=== PATIENT | male | born 1980 | race Caucasian/White ===

== ENCOUNTER 2018-06-29 13:49 | Inpatient (IN) | payer OTHER ==
[2018-06-29 14:41] VITALS: BMI 19.5
--- NOTE | 2018-06-29 19:47 | HP ---
"CIWA Score - CIWA Score Nausea/Vomitin-Mild Nausea/No Vomiting (Cramps in stomach) Muscle Tremors: 4-Moderate,w/Arms Extend Anxiety: 3 Agitation: 4-Moderately Restless Paroxysmal Sweats: 4-Forehead w/Sweat Beads Orientation: 0-Oriented Tacttile Disturbances: 0-None Auditory Disturbances: 0-None Visual Disturbances: 0-None Headache: 0-None Present CIWA-Ar Total Score: 16 Admission ROS [facility] - HPI Chief Complaint: Here for alcohol detox. Allergies/Adverse Reactions: Allergies Allergy/AdvReac Type Severity Reaction Status Date / Time No Known Allergies Allergy Verified 06/29/18 16:32 History of Present Illness: Alcohol use disorder since age 19. Amounts increased over past 4 years. [facility] stopped rum on 06/24 to 06/27. States started drinking beer instead of rum for past 2 days. Marijuana use disorder since age 15. PCP use began at age 20. Last used 06/28. Denies benzo use. Hx. opiate use disorder since age 36. Started on [facility] Methadone Program. Methadone 70 mg PO daily. Last dose today. was hospitalized at [facility] on 06/27- w/ bite of (R) ear w / reattachment. Antibiotics will be continued. Patient instructed to f/u w/ ear appointment post-discharge. Search Terms: Mark Lopez, 1980 Search Date: 06/29/2018 08:53:23 PM The Drug Utilization Report below displays all of the controlled substance prescriptions, if any, that your patient has filled in the last twelve months. The information displayed on this report is compiled from pharmacy submissions to the Department, and accurately reflects the information as submitted by the pharmacies. This report was requested by: Jayashree Fair | Reference #: [id number] Patient Name: Mark Lopez Date: 1980 Address: [address] [place], [place] [id number] Sex: Male Rx Written Rx Dispensed Drug Quantity Days Supply Prescriber Name 06/28/2018 06/28/2018 oxycodone-acetaminophen 5-325 mg tab 20 5 [facility] Patient Name: Mark Lopez Date: 1980 Address: [address] [place], [place] [id number] Sex: Male Rx Written Rx Dispensed Drug Quantity Days Supply Prescriber Name 05/04/2018 05/04/2018 acetaminophen-cod #3 tablet 20 5 Delio Skaggs MD Patient Name: Mark Lopez Date: 1980 Address: [address] [place] [id number] Sex: Male Rx Written Rx Dispensed Drug Quantity Days Supply Prescriber Name 01/05/2018 01/10/2018 tramadol-acetaminophen 37.5-325 mg tab 21 7 [facility] Exam Limitations: No Limitations - Ebola screening Have you traveled outside of the country in the last 21 days: No (N) Have you had contact with anyone from an Ebola affected area: No Have you been sick,other than usual withdrawal symptoms: No Do you have a fever: No - Review of Systems Constitutional: Diaphoresis EENT: reports: Ear Pain (Pain in (R) ear. S/P traumatic amputation (Bite) top of (R) ear with reattachement) Respiratory: reports: No Symptoms reported Cardiac: reports: No Symptoms Reported GI: reports: Nausea (w/ cramps) : reports: No Symptoms Reported Musculoskeletal: reports: No Symptoms Reported Integumentary: reports: No Symptoms Reported Neuro: reports: Tremors Endocrine: reports: No Symptoms Reported Hematology: reports: No Symptoms Reported Psychiatric: reports: Orientated x3, Agitated, Anxious, Depressed (Denies current thoughts of harming self.) Patient History - Patient Medical History Hx Anemia: No Hx Asthma: No Hx Chronic Obstructive Pulmonary Disease (COPD): No Hx Cancer: No Hx Cardiac Disorders: No Hx Congestive Heart Failure: No Hx Hypertension: No Hx Hypercholesterolemia: No Hx Pacemaker: No HX Cerebrovascular Accident: No Hx Seizures: No Hx Dementia: No Hx Diabetes: No Hx Gastrointestinal Disorders: No Hx Liver Disease: No Hx Genitourinary Disorders: No Hx Sexually Transmitted Disorders: No Hx Renal Disease (ESRD): No Hx Thyroid Disease: No Hx Human Immunodeficiency Virus (HIV): No (in 2018) Hx Hepatitis C: No Hx Depression: Yes (Has thought of hurting self in past, but never attempted) Hx Suicide Attempt: No Hx Bipolar Disorder: No Hx Schizophrenia: No - Patient Surgical History Other Surgical History: BIte (R) ear lobe w/ reattachment. Anesthesia Reaction: No - PPD History Previous Implant?: Yes Documented Results: Negative w/o proof Implanted On Prior [facility] Admission?: Yes PPD to be Administered?: Yes - Smoking Cessation Smoking history: Current every day smoker Have you smoked in the past 12 months: Yes Aproximately how many cigarettes per day: 8 Hx Chewing Tobacco Use: No Initiated information on smoking cessation: Yes 'Breaking Loose' booklet given: 06/29/18 - Substance & Tx. History Hx Alcohol Use: Yes Hx Substance Use: Yes Substance Use Type: Alcohol, Heroin, Tranquilizers (PCP) Hx Substance Use Treatment: Yes (On MMTP) - Substances Abused Alcohol Route: Oral Frequency: Daily Amount used: 1 pint rum til 06/24; last 2 days 4- 24 oz beers daily Age of first use: 19 Date of Last Use: 06/29/18 Marijuana/Hashish Route: Smoking Frequency: Daily Amount used: 3-5 blunts Age of first use: 15 Date of Last Use: 06/28/18 PCP Route: Smoking Frequency: Daily Amount used: 2 bags Age of first use: 20 Date of Last Use: 06/28/18 Admission Physical Exam [facility] - Vital Signs Vital Signs: Vital Signs - 24 hr 06/29/18 14:38 Temperature 97.0 F L Pulse Rate 76 Respiratory 18 Rate Blood Pressure 110/76 - Physical General Appearance: Yes: Mild Distress, Tremorous, Sweating (Facial perspiration ), Anxious HEENTM: Yes: EOMI, Hearing grossly Normal, Normocephalic, LEE ANN, Other ([place] of (R) ear is attached w/ sutures and covered w/xeroform dressing. 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 ) Lymphatic: Yes: Within Normal Limits - Diagnostic (1) Alcohol dependence with uncomplicated withdrawal Current Visit: Yes Status: Acute (2) Methadone maintenance therapy patient Current Visit: Yes Status: Chronic (3) Cannabis dependence without complication Current Visit: Yes Status: Chronic (4) PCP (phencyclidine) abuse Current Visit: Yes Status: Acute (5) Injury of right ear Current Visit: Yes Status: Acute Qualifiers: Encounter type: subsequent encounter Qualified Code(s): S09.91XD - Unspecified injury of ear, subsequent encounter Cleared for Admission [facility] - Detox or Rehab [facility] Level of Care: Medically Managed Detox Regimen/Protocol: Librium S Breath Alcohol Content Breath Alcohol Content: 0 Urine Drug Screen - Results Drug Screen Negative: No Urine Drug Screen Results: THC-Marijuana, BZO-Benzodiazepines, MTD-Methadone, OXY-Oxycodone"
[2018-06-29] MEDS ORDERED: chlordiazePOXIDE HCL 25 MG CAPSULE PO ONE (20:26)
[2018-06-29] MEDS ORDERED: MAGNESIUM CITRATE 300 ML BOTTLE PO PRN (20:26)
[2018-06-29] MEDS ORDERED: MAGNESIUM HYDROX 2400MG/30ML ORAL SUSPENSION 30 ML CUP PO PRN (20:26)
[2018-06-29] MEDS ORDERED: ACETAMINOPHEN 325 MG TABLET (FP) PO PRN (20:26)
[2018-06-29] MEDS ORDERED: MAG HYDROX/AL HYDROX/SIMETH 30 ML UNIT-DOSE CUP PO PRN (20:26)
[2018-06-29] MEDS ORDERED: LOPERAMIDE HCL 2 MG CAPSULE PO PRN (20:26)
[2018-06-29] MEDS ORDERED: hydrOXYzine PAMOATE 50 MG CAPSULE (FP) PO PRN (20:26)
[2018-06-29] MEDS ORDERED: IBUPROFEN 400 MG TABLET (FP) PO PRN (20:26)
[2018-06-29] MEDS ORDERED: guaiFENesin/D-METHORPHAN HB 10 ML UNIT-DOSE CUPS PO PRN (20:26)
[2018-06-29] MEDS ORDERED: MENTHOL/PHENOL 1 EACH UD MM PRN (20:26)
[2018-06-29] MEDS ORDERED: chlordiazePOXIDE HCL 25 MG CAPSULE PO PRN (20:26)
[2018-06-29] MEDS ORDERED: P-EPHED 60MG/TRIPROLIDI 2.5MG TABLET PO PRN (20:26)
[2018-06-29] MEDS: PATIENT'S OWN MEDICATION (NON-FORMULARY) (Ciprofloxacin [Cipro -] 500 MG) PO SCH (22:24)
[2018-06-29] MEDS: chlordiazePOXIDE HCL 25 MG CAPSULE PO SCH (22:25)
[2018-06-29] MEDS: THIAMINE HCL 100 MG TABLET (FP) PO SCH (22:25)
[2018-06-29] MEDS: NICOTINE POLACRILEX 2 MG GUM BC PRN (22:32)
[2018-06-29 23:47] LABS: URINE APPEARANCE CLOUDY; URINE BILIRUBIN NEGATIVE (<2.0 mg/dL); URINE COLOR AMBER; URINE GLUCOSE (UA) NEGATIVE (NEGATIVE); URINE KETONE NEGATIVE (NEGATIVE); URINE LEUK ESTERASE NEGATIVE (NEGATIVE); URINE NITRITE NEGATIVE (NEGATIVE)
[2018-06-29 23:48] LABS: URINE PROTEIN 2+ (NEGATIVE)
[2018-06-29 23:53] LABS: EPI CELLS RARE /HPF (FEW); URINE BACTERIA MODERATE /hpf (NONE SEEN); URINE MUCUS MANY
[2018-06-30] MEDS: chlordiazePOXIDE HCL 25 MG CAPSULE PO SCH ×4 (05:41→22:34)
[2018-06-30] MEDS ORDERED: METHADONE HCL 10 MG TABLET PO SCH (08:45)
--- NOTE | 2018-06-30 08:45 | PN ---
[facility] Progress Note Note: Vital Signs Temperature 97.9 F 06/30/18 06:27 Pulse Rate 77 06/30/18 06:27 Respiratory Rate 18 06/30/18 06:27 Blood Pressure 105/57 L 06/30/18 06:27 O2 Sat by Pulse Oximetry (%) Laboratory Last Values Urine Color Lisa 06/29/18 21:40 Urine Appearance Cloudy 06/29/18 21:40 Urine pH 5.0 (5.0-8.0) 06/29/18 21:40 Ur Specific [place] 1.041 (1.001-1.035) H 06/29/18 21:40 Urine Protein 2+ (NEGATIVE) H 06/29/18 21:40 Urine Glucose (UA) Negative (NEGATIVE) 06/29/18 21:40 Urine Ketones Negative (NEGATIVE) 06/29/18 21:40 Urine Blood Negative (NEGATIVE) 06/29/18 21:40 Urine Nitrite Negative (NEGATIVE) 06/29/18 21:40 Urine Bilirubin Negative (<2.0 mg/dL) 06/29/18 21:40 Urine Urobilinogen 2.0 mg/dL (0.2-1.0) 06/29/18 21:40 Ur Leukocyte Esterase Negative (NEGATIVE) 06/29/18 21:40 Urine WBC (Auto) 10 /hpf (3-5) 06/29/18 21:40 Urine RBC (Auto) 2 /hpf (0-3) 06/29/18 21:40 Ur Epithelial Cells Rare /HPF (FEW) 06/29/18 21:40 Urine Bacteria Moderate /hpf (NONE SEEN) 06/29/18 21:40 Urine Mucus Many 06/29/18 21:40 MMTP: [facility] [phone] ext:[id number] on methadone dose 70 mg last medicated 06/29/18. Dose verified by Mychal Skaggs LPN with Samson Schwarz LPN. Methadone dose ordered continue to monitor
[2018-06-30] MEDS ORDERED: METHADONE HCL 10 MG TABLET ONE (09:07)
[2018-06-30] MEDS ORDERED: METHADONE HCL 40 MG DISPERSABLE TABLET ONE (09:07)
--- NOTE | 2018-06-30 09:39 | EKG ---
Test Reason : Blood Pressure : / mmHG Vent. Rate : 069 BPM Atrial Rate : 069 BPM P-R Int : 144 ms QRS Dur : 088 ms QT Int : 386 ms P-R-T Axes : 014 -19 -07 degrees QTc Int : 413 ms SINUS RHYTHM WITH PREMATURE ATRIAL COMPLEXES MODERATE VOLTAGE CRITERIA FOR LVH, MAY BE NORMAL VARIANT BORDERLINE ECG NO PREVIOUS ECGS AVAILABLE Confirmed by AXEL THOMPSON MD ([id number]) on 06/30/2018 9:38:48 AM Referred By: Confirmed By:AXEL THOMPSON MD
[2018-06-30 10:06] LABS: HEMATOCRIT 37.5 % (35.4-49); HEMOGLOBIN 11.9 GM/dL (11.7-16.9); MCHC 31.8 g/dl (32.0-35.9); MEAN CELL VOLUME 84.8 fl (80-96); PLATELET COUNT 275 K/MM3 (134-434); RBC 4.42 M/mm3 (4.00-5.60); RDW 13.9 % (11.9-15.9); WHITE BLOOD COUNT 3.7 K/mm3 (4.0-10.0)
[2018-06-30 10:42] LABS: ALBUMIN 2.8 g/dl (3.4-5.0); ALK PHOS 85 U/L (45-117); ANION GAP 10 MMOL/L (8-16); BILIRUBIN,TOTAL 0.1 mg/dL (0.2-1); BLOOD UREA NITROGEN 10 mg/dL (7-18); CALCIUM 9.2 mg/dL (8.5-10.1); CHLORIDE 108 mmol/L (98-107); CO2 26 mmol/L (21-32); CREATININE 0.6 mg/dL (0.55-1.3); GLUCOSE,RANDOM 86 mg/dL (74-106); POTASSIUM 4.5 mmol/L (3.5-5.1); SGOT/AST 12 U/L (15-37); SGPT/ALT 15 U/L (13-61); SODIUM 144 mmol/L (136-145)
[2018-06-30] MEDS: PRENATAL VITAMINS W/ FOLIC ACID TABLET (FP) PO SCH (11:03)
[2018-06-30] MEDS: NICOTINE 14 MG/24 HOURS TOPICAL PATCH TD SCH (11:03)
[2018-06-30] MEDS: METHADONE 40 MG, METHADONE 30 MG PO SCH (11:04)
[2018-06-30] MEDS: NICOTINE POLACRILEX 2 MG GUM BC PRN ×3 (11:11→23:15)
[2018-06-30] MEDS: PATIENT'S OWN MEDICATION (NON-FORMULARY) (Ciprofloxacin [Cipro -] 500 MG) PO SCH ×2 (11:15→22:35)
--- NOTE | 2018-06-30 11:44 | PN ---
[facility] CIWA - CIWA Score Nausea/Vomitin-Mild Nausea/No Vomiting Muscle Tremors: 2 Anxiety: 3 Agitation: 3 Paroxysmal Sweats: 2 Orientation: 0-Oriented [facility] Progress Note (SOAP) Subjective: c/o interupted sleep, anxious, genarlised discomfort, chills, sweat and interrupted sleep Objective: 06/30/18 11:43 Vital Signs Temperature 97.5 F L 06/30/18 09:10 Pulse Rate 72 06/30/18 09:10 Respiratory Rate 18 06/30/18 09:10 Blood Pressure 109/67 06/30/18 09:10 O2 Sat by Pulse Oximetry (%) Laboratory Last Values WBC 3.7 K/mm3 (4.0-10.0) L 06/30/18 07:00 RBC 4.42 M/mm3 (4.00-5.60) 06/30/18 07:00 Hgb 11.9 GM/dL (11.7-16.9) 06/30/18 07:00 Hct 37.5 % (35.4-49) 06/30/18 07:00 MCV 84.8 fl (80-96) 06/30/18 07:00 MCH 27.0 pg (25.7-33.7) 06/30/18 07:00 MCHC 31.8 g/dl (32.0-35.9) L 06/30/18 07:00 RDW 13.9 % (11.9-15.9) 06/30/18 07:00 Plt Count 275 K/MM3 (134-434) 06/30/18 07:00 MPV 8.0 fl (7.5-11.1) 06/30/18 07:00 Sodium 144 mmol/L (136-145) 06/30/18 07:00 Potassium 4.5 mmol/L (3.5-5.1) 06/30/18 07:00 Chloride 108 mmol/L (98-107) H 06/30/18 07:00 Carbon Dioxide 26 mmol/L (21-32) 06/30/18 07:00 Anion Gap 10 MMOL/L (8-16) 06/30/18 07:00 BUN 10 mg/dL (7-18) 06/30/18 07:00 Creatinine 0.6 mg/dL (0.55-1.3) 06/30/18 07:00 Creat Clearance w eGFR > 60 (>60) 06/30/18 07:00 Random Glucose 86 mg/dL (74-106) 06/30/18 07:00 Calcium 9.2 mg/dL (8.5-10.1) 06/30/18 07:00 Total Bilirubin 0.1 mg/dL (0.2-1) L 06/30/18 07:00 AST 12 U/L (15-37) L 06/30/18 07:00 ALT 15 U/L (13-61) 06/30/18 07:00 Alkaline Phosphatase 85 U/L (45-117) 06/30/18 07:00 Total Protein 6.0 g/dl (6.4-8.2) L 06/30/18 07:00 Albumin 2.8 g/dl (3.4-5.0) L 06/30/18 07:00 Urine Color Lisa 06/29/18 21:40 Urine Appearance Cloudy 06/29/18 21:40 Urine pH 5.0 (5.0-8.0) 06/29/18 21:40 Ur Specific [place] 1.041 (1.001-1.035) H 06/29/18 21:40 Urine Protein 2+ (NEGATIVE) H 06/29/18 21:40 Urine Glucose (UA) Negative (NEGATIVE) 06/29/18 21:40 Urine Ketones Negative (NEGATIVE) 06/29/18 21:40 Urine Blood Negative (NEGATIVE) 06/29/18 21:40 Urine Nitrite Negative (NEGATIVE) 06/29/18 21:40 Urine Bilirubin Negative (<2.0 mg/dL) 06/29/18 21:40 Urine Urobilinogen 2.0 mg/dL (0.2-1.0) 06/29/18 21:40 Ur Leukocyte Esterase Negative (NEGATIVE) 06/29/18 21:40 Urine WBC (Auto) 10 /hpf (3-5) 06/29/18 21:40 Urine RBC (Auto) 2 /hpf (0-3) 06/29/18 21:40 Ur Epithelial Cells Rare /HPF (FEW) 06/29/18 21:40 Urine Bacteria Moderate /hpf (NONE SEEN) 06/29/18 21:40 Urine Mucus Many 06/29/18 21:40 RPR Titer Nonreactive (NONREACTIVE) 06/30/18 07:00 AOx3 no distress +right ear injury (laceration) no adventitious breath sounds full ROM ambulating in the unit Assessment: 06/30/18 11:44 withdrawal sx Plan: increase PO fluids continue cipro for right ear laceration continue detox continue to monitor
--- NOTE | 2018-06-30 11:45 | PN ---
S CIWA - CIWA Score Nausea/Vomitin-No Nausea/No Vomiting Muscle Tremors: 3 Anxiety: 2 Agitation: 3 Paroxysmal Sweats: 3 Orientation: 0-Oriented Tacttile Disturbances: 0-None Auditory Disturbances: 0-None Visual Disturbances: 1-Very Mild Sensitivity Headache: 1-Very Mild CIWA-Ar Total Score: 13
[2018-06-30] MEDS ORDERED: FLU VACCINE QUAD 60 MCG/0.5 ML (MDV 18-19) IM ONE (12:00)
[2018-06-30] MEDS ORDERED: PNEUMOC 13-VAL CONJ-DIP CRM/PF 0.5 ML DISP.SYRIN IM ONE (12:00)
[2018-06-30] MEDS ORDERED: PNEUMOCOCCAL 23 VACCINE 0.5 ML VIAL IM ONE (12:00)
--- NOTE | 2018-06-30 15:15 | CONSULT ---
[facility] Psychiatric Consult - Data Date of interview: 06/30/18 Admission source: [facility] Identifying data: Patient is a 37 year old single male, father of three, unemployed and currently homeless. This is patient's first admission to detox at [facility]. Pt. admitted to for alcohol and opiate dependence. Substance Abuse History: Smoking Cessation. Smoking history: Current every day smoker. Have you smoked in the past 12 months: Yes. Aproximately how many cigarettes per day: 8. Hx Chewing Tobacco Use: No. Initiated information on smoking cessation: Yes. 'Breaking Loose' booklet given: 06/29/18. - Substance & Tx. History. Hx Alcohol Use: Yes. Hx Substance Use: Yes. Substance Use Type : Alcohol, Heroin, Tranquilizers (PCP). Hx Substance Use Treatment: Yes (On MMTP). - Substances Abused. Alcohol. Route: Oral. Frequency: Daily. Amount used: 1 pint rum til 06/24; last 2 days 4- 24 oz beers daily. Age of first use: 19. Date of Last Use: 06/29/18. Marijuana/Hashish. Route: Smoking. Frequency: Daily. Amount used: 3-5 blunts. Age of first use: 15. Date of Last Use: 06/28/18. PCP. Route: Smoking. Frequency: Daily. Amount used: 2 bags. Age of first use: 20. Date of Last Use: 06/28/18 Medical History: BIte (R) ear lobe w/ reattachment Psychiatric History: Patient's first psychiatric contact was during the first week of June 2018 in a private clinic in the [place] due to worsening depression , irritability, and difficulty controlling his anger. States he was diagnosed with bipolar disorder. Medications bottle obtained. Pt. is prescribed geodon 20mg + Mirtzapine 15mg + Lexapro 5mg. Pt. denies h/o psychiatric hospitalization and suicide attempt. Patient is currently enrolled at the Meth[facility] program [facility] and is on methadone maintenance 70mg daily. Physical/Sexual Abuse/Trauma History: denies. Mental Status Exam - Mental Status Exam Alert and Oriented to: Time, Place, Person Cognitive Function: Good Patient Appearance: Well Groomed Mood: Euthymic Affect: Mood Congruent Patient Behavior: Appropriate, Cooperative Speech Pattern: Clear, Appropriate Voice Loudness: Normal Thought Process: Intact, Goal Oriented Thought Disorder: Not Present Hallucinations: Denies Suicidal Ideation: Denies Homicidal Ideation: Denies Insight/Judgement: Poor Sleep: Fair Appetite: Fair Muscle strength/Tone: Normal Gait/Station: Normal Psychiatric Findings - Problem List ([place] 1, 2,3) (1) Mood disorder Current Visit: Yes Status: Chronic (2) Alcohol dependence with uncomplicated withdrawal Current Visit: Yes Status: Acute (3) Cannabis dependence without complication Current Visit: Yes Status: Chronic (4) Methadone maintenance therapy patient Current Visit: Yes Status: Chronic (5) Substance-induced sleep disorder Current Visit: Yes Status: Acute - Initial Treatment Plan Initial Treatment Plan: Psychoeducation provided. detoxification in progress. Prescription bottles obtained from security. Pt received a prescripition of geodon 20mg + lexapro 5mg + MIrtzapine on 06/21. Will order the above medications. Verbal consent given.
[2018-06-30] MEDS: MIRTAZAPINE 15 MG TABLET (FP) PO SCH (22:34)
[2018-06-30] MEDS: THIAMINE HCL 100 MG TABLET (FP) PO SCH (22:34)
[2018-06-30] MEDS: ZIPRASIDONE 20 MG CAPSULE PO SCH (22:36)
[2018-07-01] MEDS: IBUPROFEN 600 MG TABLET (FP) PO PRN (00:21)
[2018-07-01] MEDS ORDERED: METHADONE HCL 40 MG DISPERSABLE TABLET ONE (04:33)
[2018-07-01] MEDS ORDERED: METHADONE HCL 10 MG TABLET ONE (04:33)
[2018-07-01] MEDS: chlordiazePOXIDE HCL 25 MG CAPSULE PO SCH ×3 (05:01→17:17)
[2018-07-01] MEDS: METHADONE 40 MG, METHADONE 30 MG PO SCH (05:01)
[2018-07-01] MEDS: ESCITALOPRAM OXALATE 10 MG TABLET (FP) PO SCH (10:10)
[2018-07-01] MEDS: NICOTINE 14 MG/24 HOURS TOPICAL PATCH TD SCH (10:10)
[2018-07-01] MEDS: PATIENT'S OWN MEDICATION (NON-FORMULARY) (Ciprofloxacin [Cipro -] 500 MG) PO SCH ×2 (10:10→22:29)
[2018-07-01] MEDS: PRENATAL VITAMINS W/ FOLIC ACID TABLET (FP) PO SCH (10:11)
--- NOTE | 2018-07-01 11:43 | PN ---
[facility] Progress Note (SOAP) Subjective: sweats irritable agitation chills Objective: 07/01/18 11:42 Vital Signs Temperature 97.2 F L 07/01/18 09:30 Pulse Rate 92 H 07/01/18 09:30 Respiratory Rate 18 07/01/18 09:30 Blood Pressure 107/56 L 07/01/18 09:30 O2 Sat by Pulse Oximetry (%) Laboratory Tests 06/29/18 06/30/18 06/30/18 21:40 07:00 07:00 WBC 3.7 L RBC 4.42 Hgb 11.9 Hct 37.5 MCV 84.8 MCH 27.0 MCHC 31.8 L RDW 13.9 Plt Count 275 MPV 8.0 Sodium 144 Potassium 4.5 Chloride 108 H Carbon Dioxide 26 Anion Gap 10 BUN 10 Creatinine 0.6 Creat Clearance w eGFR > 60 Random Glucose 86 Calcium 9.2 Total Bilirubin 0.1 L AST 12 L ALT 15 Alkaline Phosphatase 85 Total Protein 6.0 L Albumin 2.8 L Urine Color Lisa Urine Appearance Cloudy Urine pH 5.0 Ur Specific [place] 1.041 H Urine Protein 2+ H Urine Glucose (UA) Negative Urine Ketones Negative Urine Blood Negative Urine Nitrite Negative Urine Bilirubin Negative Urine Urobilinogen 2.0 Ur Leukocyte Esterase Negative Urine WBC (Auto) 10 Urine RBC (Auto) 2 Ur Epithelial Cells Rare Urine Bacteria Moderate Urine Mucus Many RPR Titer 06/30/18 07:00 WBC RBC Hgb Hct MCV MCH MCHC RDW Plt Count MPV Sodium Potassium Chloride Carbon Dioxide Anion Gap BUN Creatinine Creat Clearance w eGFR Random Glucose Calcium Total Bilirubin AST ALT Alkaline Phosphatase Total Protein Albumin Urine Color Urine Appearance Urine pH Ur Specific [place] Urine Protein Urine Glucose (UA) Urine Ketones Urine Blood Urine Nitrite Urine Bilirubin Urine Urobilinogen Ur Leukocyte Esterase Urine WBC (Auto) Urine RBC (Auto) Ur Epithelial Cells Urine Bacteria Urine Mucus RPR Titer Nonreactive repeat u/a aaox3 ambulating no acute distress Assessment: 07/01/18 11:42 withdrawal sx Plan: continue detox increase fluids f/u repeat u/a
[2018-07-01] MEDS: ZIPRASIDONE 20 MG CAPSULE PO SCH (17:17)
[2018-07-01] MEDS: NICOTINE POLACRILEX 2 MG GUM BC PRN (21:12)
[2018-07-01] MEDS: MELATONIN 5 MG TABLETS PO PRN (22:29)
[2018-07-01] MEDS: THIAMINE HCL 100 MG TABLET (FP) PO SCH (22:29)
[2018-07-01] MEDS: chlordiazePOXIDE 5 MG CAPSULE PO SCH (22:30)
[2018-07-01] MEDS: MIRTAZAPINE 15 MG TABLET (FP) PO SCH (22:30)
[2018-07-02] MEDS: chlordiazePOXIDE 5 MG CAPSULE PO SCH ×3 (06:05→17:39)
[2018-07-02] MEDS ORDERED: METHADONE HCL 40 MG DISPERSABLE TABLET ONE (06:06)
[2018-07-02] MEDS ORDERED: METHADONE HCL 10 MG TABLET ONE (06:06)
[2018-07-02] MEDS: METHADONE 40 MG, METHADONE 30 MG PO SCH (06:06)
[2018-07-02] MEDS: NICOTINE POLACRILEX 2 MG GUM BC PRN ×2 (09:07→19:43)
--- NOTE | 2018-07-02 09:14 | PN ---
S CIWA - CIWA Score Nausea/Vomitin-No Nausea/No Vomiting Muscle Tremors: 1-None Visible, but [place] Anxiety: 2 Agitation: 2 Paroxysmal Sweats: 1-Minimal Palms Moist Orientation: 0-Oriented Tacttile Disturbances: 0-None Auditory Disturbances: 0-None Visual Disturbances: 0-None Headache: 0-None Present CIWA-Ar Total Score: 6 [facility] Progress Note (SOAP) Subjective: anxious, chills, interrupted sleep Objective: 07/02/18 09:11 Vital Signs Temperature 97.9 F 07/02/18 09:05 Pulse Rate 108 H 07/02/18 09:05 Respiratory Rate 18 07/02/18 09:05 Blood Pressure 103/68 07/02/18 09:05 O2 Sat by Pulse Oximetry (%) Laboratory Last Values WBC 3.7 K/mm3 (4.0-10.0) L 06/30/18 07:00 RBC 4.42 M/mm3 (4.00-5.60) 06/30/18 07:00 Hgb 11.9 GM/dL (11.7-16.9) 06/30/18 07:00 Hct 37.5 % (35.4-49) 06/30/18 07:00 MCV 84.8 fl (80-96) 06/30/18 07:00 MCH 27.0 pg (25.7-33.7) 06/30/18 07:00 MCHC 31.8 g/dl (32.0-35.9) L 06/30/18 07:00 RDW 13.9 % (11.9-15.9) 06/30/18 07:00 Plt Count 275 K/MM3 (134-434) 06/30/18 07:00 MPV 8.0 fl (7.5-11.1) 06/30/18 07:00 Sodium 144 mmol/L (136-145) 06/30/18 07:00 Potassium 4.5 mmol/L (3.5-5.1) 06/30/18 07:00 Chloride 108 mmol/L (98-107) H 06/30/18 07:00 Carbon Dioxide 26 mmol/L (21-32) 06/30/18 07:00 Anion Gap 10 MMOL/L (8-16) 06/30/18 07:00 BUN 10 mg/dL (7-18) 06/30/18 07:00 Creatinine 0.6 mg/dL (0.55-1.3) 06/30/18 07:00 Creat Clearance w eGFR > 60 (>60) 06/30/18 07:00 Random Glucose 86 mg/dL (74-106) 06/30/18 07:00 Calcium 9.2 mg/dL (8.5-10.1) 06/30/18 07:00 Total Bilirubin 0.1 mg/dL (0.2-1) L 06/30/18 07:00 AST 12 U/L (15-37) L 06/30/18 07:00 ALT 15 U/L (13-61) 06/30/18 07:00 Alkaline Phosphatase 85 U/L (45-117) 06/30/18 07:00 Total Protein 6.0 g/dl (6.4-8.2) L 06/30/18 07:00 Albumin 2.8 g/dl (3.4-5.0) L 06/30/18 07:00 Urine Color Lisa 06/29/18 21:40 Urine Appearance Cloudy 06/29/18 21:40 Urine pH 5.0 (5.0-8.0) 06/29/18 21:40 Ur Specific [place] 1.041 (1.001-1.035) H 06/29/18 21:40 Urine Protein 2+ (NEGATIVE) H 06/29/18 21:40 Urine Glucose (UA) Negative (NEGATIVE) 06/29/18 21:40 Urine Ketones Negative (NEGATIVE) 06/29/18 21:40 Urine Blood Negative (NEGATIVE) 06/29/18 21:40 Urine Nitrite Negative (NEGATIVE) 06/29/18 21:40 Urine Bilirubin Negative (<2.0 mg/dL) 06/29/18 21:40 Urine Urobilinogen 2.0 mg/dL (0.2-1.0) 06/29/18 21:40 Ur Leukocyte Esterase Negative (NEGATIVE) 06/29/18 21:40 Urine WBC (Auto) 10 /hpf (3-5) 06/29/18 21:40 Urine RBC (Auto) 2 /hpf (0-3) 06/29/18 21:40 Ur Epithelial Cells Rare /HPF (FEW) 06/29/18 21:40 Urine Bacteria Moderate /hpf (NONE SEEN) 06/29/18 21:40 Urine Mucus Many 06/29/18 21:40 RPR Titer Nonreactive (NONREACTIVE) 06/30/18 07:00 Assessment: 07/02/18 09:12 Aox3 no distress +right ear injury healing well, no discharge no adventitious breath sounds Full ROM, ambulating in the unit Plan: increase PO fluids continue PO abx continue detox continue to monitor Patient schedule to follow up at [facility] 07/04/18 for his after care
[2018-07-02] MEDS: PATIENT'S OWN MEDICATION (NON-FORMULARY) (Ciprofloxacin [Cipro -] 500 MG) PO SCH ×2 (10:05→22:58)
[2018-07-02] MEDS: PRENATAL VITAMINS W/ FOLIC ACID TABLET (FP) PO SCH (10:06)
[2018-07-02] MEDS: NICOTINE 14 MG/24 HOURS TOPICAL PATCH TD SCH (10:06)
[2018-07-02] MEDS: ESCITALOPRAM OXALATE 10 MG TABLET (FP) PO SCH (10:06)
[2018-07-02 11:20] LABS: URINE APPEARANCE CLEAR; URINE BILIRUBIN NEGATIVE (<2.0 mg/dL); URINE COLOR STRAW; URINE GLUCOSE (UA) NEGATIVE (NEGATIVE); URINE KETONE NEGATIVE (NEGATIVE); URINE LEUK ESTERASE NEGATIVE (NEGATIVE); URINE NITRITE NEGATIVE (NEGATIVE); URINE PROTEIN NEGATIVE (NEGATIVE); URINE UROBILINOGEN NEGATIVE mg/dL (0.2-1.0)
[2018-07-02] MEDS: ZIPRASIDONE 20 MG CAPSULE PO SCH (17:39)
[2018-07-02] MEDS: chlordiazePOXIDE HCL 10 MG CAPSULE PO SCH (22:58)
[2018-07-02] MEDS: THIAMINE HCL 100 MG TABLET (FP) PO SCH (22:58)
[2018-07-02] MEDS: MIRTAZAPINE 15 MG TABLET (FP) PO SCH (22:58)
[2018-07-02] MEDS: MELATONIN 5 MG TABLETS PO PRN (22:58)
[2018-07-03] MEDS ORDERED: METHADONE HCL 40 MG DISPERSABLE TABLET ONE (04:57)
[2018-07-03] MEDS ORDERED: METHADONE HCL 10 MG TABLET ONE (04:58)
[2018-07-03] MEDS: METHADONE 40 MG, METHADONE 30 MG PO SCH (06:05)
[2018-07-03] MEDS: chlordiazePOXIDE HCL 10 MG CAPSULE PO SCH ×3 (06:05→18:10)
[2018-07-03] MEDS: PATIENT'S OWN MEDICATION (NON-FORMULARY) (Ciprofloxacin [Cipro -] 500 MG) PO SCH ×2 (10:05→22:57)
[2018-07-03] MEDS: NICOTINE 14 MG/24 HOURS TOPICAL PATCH TD SCH (10:06)
[2018-07-03] MEDS: PRENATAL VITAMINS W/ FOLIC ACID TABLET (FP) PO SCH (10:06)
[2018-07-03] MEDS: ESCITALOPRAM OXALATE 10 MG TABLET (FP) PO SCH (10:06)
[2018-07-03] MEDS: NICOTINE POLACRILEX 2 MG GUM BC PRN (13:16)
--- NOTE | 2018-07-03 17:08 | PN ---
S Progress Note (SOAP) Subjective: feeling better no tremor no pain on right ear decapitated on 06/27/18 treated at [facility] over night released to [facility] right ear dressing dry no blood stain denies pain patient has apporintment next week patient wants to go to rehab at [facility] Objective: 07/03/18 17:07 Vital Signs Temperature 98.9 F 07/03/18 14:07 Pulse Rate 76 07/03/18 14:07 Respiratory Rate 16 07/03/18 14:07 Blood Pressure 101/66 07/03/18 14:07 O2 Sat by Pulse Oximetry (%) Laboratory Last Values WBC 3.7 K/mm3 (4.0-10.0) L 06/30/18 07:00 RBC 4.42 M/mm3 (4.00-5.60) 06/30/18 07:00 Hgb 11.9 GM/dL (11.7-16.9) 06/30/18 07:00 Hct 37.5 % (35.4-49) 06/30/18 07:00 MCV 84.8 fl (80-96) 06/30/18 07:00 MCH 27.0 pg (25.7-33.7) 06/30/18 07:00 MCHC 31.8 g/dl (32.0-35.9) L 06/30/18 07:00 RDW 13.9 % (11.9-15.9) 06/30/18 07:00 Plt Count 275 K/MM3 (134-434) 06/30/18 07:00 MPV 8.0 fl (7.5-11.1) 06/30/18 07:00 Sodium 144 mmol/L (136-145) 06/30/18 07:00 Potassium 4.5 mmol/L (3.5-5.1) 06/30/18 07:00 Chloride 108 mmol/L (98-107) H 06/30/18 07:00 Carbon Dioxide 26 mmol/L (21-32) 06/30/18 07:00 Anion Gap 10 MMOL/L (8-16) 06/30/18 07:00 BUN 10 mg/dL (7-18) 06/30/18 07:00 Creatinine 0.6 mg/dL (0.55-1.3) 06/30/18 07:00 Creat Clearance w eGFR > 60 (>60) 06/30/18 07:00 Random Glucose 86 mg/dL (74-106) 06/30/18 07:00 Calcium 9.2 mg/dL (8.5-10.1) 06/30/18 07:00 Total Bilirubin 0.1 mg/dL (0.2-1) L 06/30/18 07:00 AST 12 U/L (15-37) L 06/30/18 07:00 ALT 15 U/L (13-61) 06/30/18 07:00 Alkaline Phosphatase 85 U/L (45-117) 06/30/18 07:00 Total Protein 6.0 g/dl (6.4-8.2) L 06/30/18 07:00 Albumin 2.8 g/dl (3.4-5.0) L 06/30/18 07:00 Urine Color [place] 07/02/18 07:40 Urine Appearance Clear 07/02/18 07:40 Urine pH 7.0 (5.0-8.0) D 07/02/18 07:40 Ur Specific [place] 1.012 (1.001-1.035) 07/02/18 07:40 Urine Protein Negative (NEGATIVE) 07/02/18 07:40 Urine Glucose (UA) Negative (NEGATIVE) 07/02/18 07:40 Urine Ketones Negative (NEGATIVE) 07/02/18 07:40 Urine Blood Negative (NEGATIVE) 07/02/18 07:40 Urine Nitrite Negative (NEGATIVE) 07/02/18 07:40 Urine Bilirubin Negative (<2.0 mg/dL) 07/02/18 07:40 Urine Urobilinogen Negative mg/dL (0.2-1.0) 07/02/18 07:40 Ur Leukocyte Esterase Negative (NEGATIVE) 07/02/18 07:40 Urine WBC (Auto) 10 /hpf (3-5) 06/29/18 21:40 Urine RBC (Auto) 2 /hpf (0-3) 06/29/18 21:40 Ur Epithelial Cells Rare /HPF (FEW) 06/29/18 21:40 Urine Bacteria Moderate /hpf (NONE SEEN) 06/29/18 21:40 Urine Mucus Many 06/29/18 21:40 RPR Titer Nonreactive (NONREACTIVE) 06/30/18 07:00 lab noted Assessment: 07/03/18 17:08 mild withdrawal sx Plan: medically supervised detox
[2018-07-03] MEDS: ZIPRASIDONE 20 MG CAPSULE PO SCH (18:10)
[2018-07-03] MEDS: MELATONIN 5 MG TABLETS PO PRN (22:35)
[2018-07-03] MEDS: MIRTAZAPINE 15 MG TABLET (FP) PO SCH (22:35)
[2018-07-03] MEDS: IBUPROFEN 600 MG TABLET (FP) PO PRN (22:35)
[2018-07-03] MEDS: THIAMINE HCL 100 MG TABLET (FP) PO SCH (22:58)
[2018-07-04] MEDS ORDERED: METHADONE HCL 40 MG DISPERSABLE TABLET ONE (02:37)
[2018-07-04] MEDS ORDERED: METHADONE HCL 10 MG TABLET ONE (02:38)
[2018-07-04] MEDS: METHADONE 40 MG, METHADONE 30 MG PO SCH (05:09)
--- NOTE | 2018-07-04 08:34 | DS ---
[facility] Detox Discharge Summary Admission Date: 06/29/18 Discharge Date: 07/04/18 - History Present History: Alcohol Dependence, Cannabis Dependence, Pcp Dependence, MMTP - Physical Exam Results Vital Signs: Vital Signs Temperature 98.2 F 07/04/18 06:00 Pulse Rate 88 07/04/18 06:00 Respiratory Rate 18 07/04/18 06:00 Blood Pressure 99/57 L 07/04/18 06:00 O2 Sat by Pulse Oximetry (%) - Treatment Hospital Course: Detox Protocol Followed, Detoxed Safely, Responded well, Discharged Condition Good, Rehab Referral Accepted - Medication Discharge Medications: Ambulatory Orders Ciprofloxacin [Cipro -] 500 mg PO Q12H 06/29/18 Ibuprofen [Motrin -] 600 mg PO Q6H PRN 06/29/18 Oxycodone HCl/Acetaminophen [Endocet 5-325 Tablet] 1 each PO Q6H PRN 06/29/18 Escitalopram Oxalate [Lexapro -] 5 mg PO DAILY 06/30/18 Mirtazapine 15 mg PO HS 06/30/18 Ziprasidone HCl [Geodon] 20 mg PO DAILY 06/30/18 - Diagnosis (1) Alcohol dependence with uncomplicated withdrawal Current Visit: Yes Status: Acute (2) Injury of right ear Current Visit: Yes Status: Acute Qualifiers: Encounter type: subsequent encounter Qualified Code(s): S09.91XD - Unspecified injury of ear, subsequent encounter (3) PCP (phencyclidine) abuse Current Visit: Yes Status: Acute (4) Substance-induced sleep disorder Current Visit: Yes Status: Acute (5) Cannabis dependence without complication Current Visit: Yes Status: Chronic (6) Methadone maintenance therapy patient Current Visit: Yes Status: Chronic (7) Mood disorder Current Visit: Yes Status: Chronic - AMA Did Patient Leave Against Medical Advice: No
[2018-07-04 09:19] VITALS: BP 113/58; PULSE 81; TEMP 97.7
[2018-07-04] MEDS: ESCITALOPRAM OXALATE 10 MG TABLET (FP) PO SCH (10:13)
[2018-07-04] MEDS: PATIENT'S OWN MEDICATION (NON-FORMULARY) (Ciprofloxacin [Cipro -] 500 MG) PO SCH (10:13)
[2018-07-04] MEDS: NICOTINE 14 MG/24 HOURS TOPICAL PATCH TD SCH (10:13)
[2018-07-04] MEDS: PRENATAL VITAMINS W/ FOLIC ACID TABLET (FP) PO SCH (10:13)
== END 2018-07-04 13:09 | disposition other institution (70) | DRG 773 ==
LOC: YASAS 13:49 → Y6N 19:45
PROC: HZ2ZZZZ Detoxification Services for Substance Abuse Treatment (ICD-10-PCS; principal; 2018-06-29)
DX: F10.230 Alcohol dependence with withdrawal, uncomplicated (principal); F11.20 Opioid dependence, uncomplicated; F12.20 Cannabis dependence, uncomplicated; F16.10 Hallucinogen abuse, uncomplicated; F17.210 Nicotine dependence, cigarettes, uncomplicated; F39 Unspecified mood [affective] disorder; F19.282 Other psychoactive substance dependence with psychoactive substance-induced sleep disorder; S01.351D Open bite of right ear, subsequent encounter; X58.XXXD Exposure to other specified factors, subsequent encounter
CPT/HCPCS: 36415; 80053; 81003; 81015; 85027; 86593; 90688; 90732; 93005; 93010; G0008; G0009

== ENCOUNTER 2018-07-04 13:22 | Inpatient (IN) | payer OTHER ==
[2018-07-04 14:52] VITALS: BMI 20.7
--- NOTE | 2018-07-04 15:34 | HP ---
[facility] Rehab Assess/Revision - Admission History Admitted to Rehab from: [facility] [place] - Vital signs Vital Signs: Vital Signs Period Temp Pulse Resp BP Sys/Ellsworth Pulse Ox Last 24 Hr 98.7 F-98.7 F 83-83 18-18 109-109/63-63 - Findings Detox History & Physical reviewed: Yes Concur with findings: Yes
[2018-07-04] MEDS ORDERED: MAG HYDROX/AL HYDROX/SIMETH 30 ML UNIT-DOSE CUP PO PRN (15:35)
[2018-07-04] MEDS ORDERED: ACETAMINOPHEN 325 MG TABLET (FP) PO PRN (15:35)
[2018-07-04] MEDS ORDERED: guaiFENesin/D-METHORPHAN HB 10 ML UNIT-DOSE CUPS PO PRN (15:35)
[2018-07-04] MEDS ORDERED: P-EPHED 60MG/TRIPROLIDI 2.5MG TABLET PO PRN (15:35)
[2018-07-04] MEDS ORDERED: MAGNESIUM HYDROX 2400MG/30ML ORAL SUSPENSION 30 ML CUP PO PRN (15:35)
[2018-07-04] MEDS ORDERED: MAGNESIUM CITRATE 300 ML BOTTLE PO PRN (15:35)
[2018-07-04] MEDS ORDERED: MENTHOL/PHENOL 1 EACH UD MM PRN (15:35)
[2018-07-04] MEDS ORDERED: LOPERAMIDE HCL 2 MG CAPSULE PO PRN (15:35)
[2018-07-04] MEDS ORDERED: CIPROFLOXACIN 500 MG TABLET (RESTRICTED TO ID) PO SCH (15:45)
--- NOTE | 2018-07-04 16:04 | HP ---
Psychiatrist Admission - Data Date of interview: 07/04/18 Admission source: [address] [place] [address] detox Identifying data: This is the first admission to [address] [place] [address] inpatient rehabilitation for this 37 years old single h father of 3,homeless,supported by family. Medical History: R ear injury. Psychiatric History: patient started to see a psychiatrist a few months ago to address depressed mood,anxiety,drug use,drinking.he was seen by private psychiatrist in the [place].Patient was prescribed :remeron 15 mg po hs,lexapro 5 mg po daily,geodon 20 mg po daily.patient restarted all of the above medications while being in detox prescribed by YESICA Rincon. Physical/Sexual Abuse/Trauma History: denies Vital Signs: Vital Signs - 24 hr 07/04/18 07/04/18 13:23 13:59 Temperature 98.7 F 98.7 F Pulse Rate 83 83 Respiratory 18 18 Rate Blood Pressure 109/63 109/63 Allergies/Adverse Reactions: Allergies Allergy/AdvReac Type Severity Reaction Status Date / Time No Known Allergies Allergy Verified 06/29/18 16:32 Date of last physical exam: 06/29/18 Concur with the findings of this exam: Yes - Substance Abuse/Tx History Hx Alcohol Use: Yes (drinking since 32 yo,voka at least 1 pint daily,beers) Hx Substance Use: Yes (heroin since oct 2017 sniffing,PCP since 20 yo,marijuana, cocaine since HS) Substance Use Type: Alcohol, Cocaine, Heroin, Marijuana Hx Substance Use Treatment: Yes (this is his first inpatient rehabilitation treatment) Mental Status Exam - Mental Status Exam Alert and Oriented to: Time, Place, Person Cognitive Function: Grossly Intact Patient Appearance: Well Groomed Mood: Sad Affect: Mood Congruent, Labile Patient Behavior: Cooperative Speech Pattern: Clear Voice Loudness: Normal Thought Process: Goal Oriented Thought Disorder: Not Present Hallucinations: Denies Suicidal Ideation: Denies Homicidal Ideation: Denies Insight/Judgement: Fair Sleep: Fair Appetite: Good Muscle strength/Tone: Normal Gait/Station: Normal Psychiatric Findings - Problem List ([place] 1, 2,3) (1) PCP (phencyclidine) abuse Current Visit: Yes Status: Chronic (2) Substance-induced sleep disorder Current Visit: Yes Status: Chronic (3) Methadone maintenance therapy patient Current Visit: Yes Status: Chronic (4) Alcohol dependence Current Visit: Yes Status: Chronic (5) Cannabis dependence Current Visit: Yes Status: Chronic (6) Injury of right ear Current Visit: Yes Status: Acute Qualifiers: Encounter type: subsequent encounter Qualified Code(s): S09.91XD - Unspecified injury of ear, subsequent encounter (7) Substance induced mood disorder Current Visit: Yes Status: Chronic - Initial Treatment Plan Initial Treatment Plan: continue current medications as per plan.will monitor progress.
[2018-07-04] MEDS: THIAMINE HCL 100 MG TABLET (FP) PO SCH (21:33)
[2018-07-04] MEDS: MIRTAZAPINE 15 MG TABLET (FP) PO SCH (21:33)
[2018-07-04] MEDS: MELATONIN 5 MG TABLETS PO PRN (21:34)
[2018-07-04] MEDS: NICOTINE POLACRILEX 4 MG GUM BUC PRN (21:40)
[2018-07-04] MEDS: hydrOXYzine PAMOATE 50 MG CAPSULE (FP) PO PRN (21:40)
[2018-07-05] MEDS ORDERED: METHADONE HCL 10 MG TABLET PO SCH (06:00)
[2018-07-05] MEDS ORDERED: METHADONE HCL 40 MG DISPERSABLE TABLET ONE (06:15)
[2018-07-05] MEDS ORDERED: METHADONE HCL 10 MG TABLET ONE (06:15)
[2018-07-05] MEDS: METHADONE 40 MG, METHADONE 30 MG PO SCH (06:15)
[2018-07-05] MEDS: ESCITALOPRAM OXALATE 10 MG TABLET (FP) PO SCH (09:57)
[2018-07-05] MEDS: PRENATAL VITAMINS W/ FOLIC ACID TABLET (FP) PO SCH (10:00)
[2018-07-05] MEDS: NICOTINE 21 MG/24 HOURS TOPICAL PATCH TD SCH (10:00)
[2018-07-05] MEDS ORDERED: NICOTINE 21 MG/24 HOURS TOPICAL PATCH TD SCH (10:00)
[2018-07-05] MEDS: ZIPRASIDONE 20 MG CAPSULE PO SCH (10:00)
--- NOTE | 2018-07-05 10:18 | PN ---
[facility] Progress Note Note: Patient reporting difficulty to sleep. He is currently on Remeron 15 mg po HS. Will order Belsomra 10 mg po HS prn for insomnia
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
[2018-07-05] MEDS: THIAMINE HCL 100 MG TABLET (FP) PO SCH (21:28)
[2018-07-05] MEDS: MIRTAZAPINE 15 MG TABLET (FP) PO SCH (21:28)
[2018-07-05] MEDS: SUVOREXANT 10 MG TABLET PO PRN (21:30)
[2018-07-06] MEDS ORDERED: METHADONE HCL 10 MG TABLET ONE (03:23)
[2018-07-06] MEDS ORDERED: METHADONE HCL 40 MG DISPERSABLE TABLET ONE (03:23)
[2018-07-06] MEDS: METHADONE 40 MG, METHADONE 30 MG PO SCH (06:22)
[2018-07-06] MEDS ORDERED: CIPROFLOXACIN 500 MG TABLET (RESTRICTED TO ID) PO SCH (08:00)
[2018-07-06] MEDS: CIPROFLOXACIN 500 MG PO SCH ×2 (09:00→21:39)
[2018-07-06] MEDS: ESCITALOPRAM OXALATE 10 MG TABLET (FP) PO SCH (10:39)
[2018-07-06] MEDS: ZIPRASIDONE 20 MG CAPSULE PO SCH (10:40)
[2018-07-06] MEDS: PRENATAL VITAMINS W/ FOLIC ACID TABLET (FP) PO SCH (10:40)
[2018-07-06] MEDS: NICOTINE 21 MG/24 HOURS TOPICAL PATCH TD SCH (10:40)
[2018-07-06] MEDS: MIRTAZAPINE 15 MG TABLET (FP) PO SCH (21:36)
[2018-07-06] MEDS: THIAMINE HCL 100 MG TABLET (FP) PO SCH (21:36)
[2018-07-06] MEDS: SUVOREXANT 10 MG TABLET PO PRN (21:39)
[2018-07-06] MEDS: NICOTINE POLACRILEX 4 MG GUM BUC PRN (21:40)
[2018-07-07] MEDS ORDERED: METHADONE HCL 40 MG DISPERSABLE TABLET ONE (04:30)
[2018-07-07] MEDS ORDERED: METHADONE HCL 10 MG TABLET ONE (04:30)
[2018-07-07] MEDS: METHADONE 40 MG, METHADONE 30 MG PO SCH (06:08)
[2018-07-07] MEDS: CIPROFLOXACIN 500 MG PO SCH ×2 (09:05→21:00)
[2018-07-07] MEDS: PRENATAL VITAMINS W/ FOLIC ACID TABLET (FP) PO SCH (10:36)
[2018-07-07] MEDS: ESCITALOPRAM OXALATE 10 MG TABLET (FP) PO SCH (10:36)
[2018-07-07] MEDS: NICOTINE 21 MG/24 HOURS TOPICAL PATCH TD SCH (10:36)
[2018-07-07] MEDS: ZIPRASIDONE 20 MG CAPSULE PO SCH (10:37)
--- NOTE | 2018-07-07 13:18 | PN ---
[facility] Progress Note Note: Patient complains of difficulty sleeping despite taking Remeron 15 mg and Belsomra 10 mg at bedtime. Will increase Belsomra dosage to 15 mg po HS prn for insomnia
[2018-07-07] MEDS: MIRTAZAPINE 15 MG TABLET (FP) PO SCH (21:36)
[2018-07-07] MEDS: THIAMINE HCL 100 MG TABLET (FP) PO SCH (21:37)
[2018-07-07] MEDS ORDERED: SUVOREXANT 15 MG TABLET PO PRN (22:00)
[2018-07-08] MEDS ORDERED: METHADONE HCL 10 MG TABLET ONE (05:52)
[2018-07-08] MEDS ORDERED: METHADONE HCL 40 MG DISPERSABLE TABLET ONE (05:52)
[2018-07-08] MEDS: METHADONE 40 MG, METHADONE 30 MG PO SCH (06:19)
[2018-07-08] MEDS: CIPROFLOXACIN 500 MG PO SCH ×2 (07:40→23:52)
[2018-07-08] MEDS: NICOTINE 21 MG/24 HOURS TOPICAL PATCH TD SCH (10:35)
[2018-07-08] MEDS: PRENATAL VITAMINS W/ FOLIC ACID TABLET (FP) PO SCH (10:35)
[2018-07-08] MEDS: ZIPRASIDONE 20 MG CAPSULE PO SCH (10:35)
[2018-07-08] MEDS: ESCITALOPRAM OXALATE 10 MG TABLET (FP) PO SCH (10:36)
--- NOTE | 2018-07-08 16:21 | PN ---
S Progress Note Note: PT HAS SX DRESSING ON RIGHT EAR AND DID NOT WANT IT REMOVED STATING HE WAS INSTRUCTED TO AVOID WATER ON IT ALSO. PT REPORTS HE HAS DISCHARGE INSTRUCTIONS IN HIS PROPERTY IN [facility]. DISCUSSED WITH NURSE SANDRITA CAMPBELL ON 07/07/18 TO TAKE PATIENT TO RETRIEVE DISCHARGE PAPERS FOR PROPER CARE OF THE EAR. PAPERS STILL PENDING TO BE OBTAINED. PLAN:SPOKE TO MICHELLE, [employer] TO REMIND NURSES TO FACILITATE BRINGING THE DISCHARGE PAPERS FROM SECURITY.
--- NOTE | 2018-07-08 18:02 | PN ---
[facility] Progress Note Note: Psychiatric nurse practitioner note: Patient continues to report poor sleep. He accepted Belsomra 15mg last night with minimal effect. Will increase belsomra to 20mg qhs. Verbal consent given.
[2018-07-08] MEDS ORDERED: SUVOREXANT 20 MG TABLET PO PRN (22:00)
[2018-07-08] MEDS: THIAMINE HCL 100 MG TABLET (FP) PO SCH (22:04)
[2018-07-08] MEDS: MIRTAZAPINE 15 MG TABLET (FP) PO SCH (22:04)
[2018-07-08] MEDS: MELATONIN 5 MG TABLETS PO PRN (22:06)
[2018-07-08] MEDS: hydrOXYzine PAMOATE 50 MG CAPSULE (FP) PO PRN (22:07)
[2018-07-09] MEDS ORDERED: METHADONE HCL 10 MG TABLET ONE (06:04)
[2018-07-09] MEDS: METHADONE 40 MG, METHADONE 30 MG PO SCH (06:05)
[2018-07-09] MEDS ORDERED: METHADONE HCL 40 MG DISPERSABLE TABLET ONE (06:05)
[2018-07-09] MEDS: CIPROFLOXACIN 500 MG PO SCH (07:03)
[2018-07-09] MEDS: PRENATAL VITAMINS W/ FOLIC ACID TABLET (FP) PO SCH (10:17)
[2018-07-09] MEDS: ESCITALOPRAM OXALATE 10 MG TABLET (FP) PO SCH (10:17)
[2018-07-09] MEDS: ZIPRASIDONE 20 MG CAPSULE PO SCH (10:17)
[2018-07-09] MEDS: NICOTINE 21 MG/24 HOURS TOPICAL PATCH TD SCH (10:18)
[2018-07-09] MEDS: THIAMINE HCL 100 MG TABLET (FP) PO SCH (21:54)
[2018-07-09] MEDS: MIRTAZAPINE 15 MG TABLET (FP) PO SCH (21:54)
[2018-07-09] MEDS: MELATONIN 5 MG TABLETS PO PRN (21:54)
[2018-07-09] MEDS: QUEtiapine FUMARATE 100 MG TABLET (FP) PO SCH (22:09)
[2018-07-10] MEDS ORDERED: METHADONE HCL 10 MG TABLET ONE (02:24)
[2018-07-10] MEDS ORDERED: METHADONE HCL 40 MG DISPERSABLE TABLET ONE (02:24)
[2018-07-10] MEDS: METHADONE 40 MG, METHADONE 30 MG PO SCH (06:11)
[2018-07-10] MEDS: PRENATAL VITAMINS W/ FOLIC ACID TABLET (FP) PO SCH (09:07)
[2018-07-10] MEDS: ZIPRASIDONE 20 MG CAPSULE PO SCH (09:08)
[2018-07-10] MEDS: NICOTINE 21 MG/24 HOURS TOPICAL PATCH TD SCH (09:08)
[2018-07-10] MEDS: ESCITALOPRAM OXALATE 10 MG TABLET (FP) PO SCH (09:08)
[2018-07-10] MEDS: QUEtiapine FUMARATE 100 MG TABLET (FP) PO SCH (22:11)
[2018-07-10] MEDS: MIRTAZAPINE 15 MG TABLET (FP) PO SCH (22:11)
[2018-07-10] MEDS: THIAMINE HCL 100 MG TABLET (FP) PO SCH (22:11)
[2018-07-11] MEDS ORDERED: METHADONE HCL 10 MG TABLET (FOR DETOX USE ONLY) PO SCH (06:00)
[2018-07-11] MEDS ORDERED: METHADONE 40 MG, METHADONE 30 MG PO SCH (06:00)
[2018-07-11] MEDS ORDERED: METHADONE HCL 10 MG TABLET ONE (06:14)
[2018-07-11] MEDS ORDERED: METHADONE HCL 40 MG DISPERSABLE TABLET ONE (06:15)
[2018-07-11] MEDS: METHADONE 40 MG, METHADONE 30 MG PO SCH (06:17)
[2018-07-11] MEDS: ZIPRASIDONE 20 MG CAPSULE PO SCH (10:26)
[2018-07-11] MEDS: NICOTINE 21 MG/24 HOURS TOPICAL PATCH TD SCH (10:26)
[2018-07-11] MEDS: PRENATAL VITAMINS W/ FOLIC ACID TABLET (FP) PO SCH (10:26)
[2018-07-11] MEDS: ESCITALOPRAM OXALATE 10 MG TABLET (FP) PO SCH (10:26)
[2018-07-11] MEDS: NICOTINE POLACRILEX 4 MG GUM BUC PRN (10:28)
[2018-07-11] MEDS: IBUPROFEN 400 MG TABLET (FP) PO PRN (10:29)
[2018-07-11] MEDS: MIRTAZAPINE 15 MG TABLET (FP) PO SCH (21:50)
[2018-07-11] MEDS: QUEtiapine FUMARATE 100 MG TABLET (FP) PO SCH (21:50)
[2018-07-11] MEDS: THIAMINE HCL 100 MG TABLET (FP) PO SCH (21:50)
[2018-07-11] MEDS: MELATONIN 5 MG TABLETS PO PRN (21:51)
[2018-07-11] MEDS: BACITRACIN 0.9 GM PACKET TP SCH (21:51)
[2018-07-12] MEDS ORDERED: METHADONE HCL 10 MG TABLET ONE (06:11)
[2018-07-12] MEDS ORDERED: METHADONE HCL 40 MG DISPERSABLE TABLET ONE (06:12)
[2018-07-12] MEDS: METHADONE 40 MG, METHADONE 30 MG PO SCH ×2 (06:14→06:41)
[2018-07-12] MEDS: ZIPRASIDONE 20 MG CAPSULE PO SCH (10:01)
[2018-07-12] MEDS: BACITRACIN 0.9 GM PACKET TP SCH ×2 (10:01→22:01)
[2018-07-12] MEDS: ESCITALOPRAM OXALATE 10 MG TABLET (FP) PO SCH (10:01)
[2018-07-12] MEDS: NICOTINE 21 MG/24 HOURS TOPICAL PATCH TD SCH (10:01)
[2018-07-12] MEDS: PRENATAL VITAMINS W/ FOLIC ACID TABLET (FP) PO SCH (10:01)
[2018-07-12] MEDS: NICOTINE POLACRILEX 4 MG GUM BUC PRN (10:02)
[2018-07-12] MEDS: IBUPROFEN 400 MG TABLET (FP) PO PRN (14:41)
[2018-07-12] MEDS: MIRTAZAPINE 15 MG TABLET (FP) PO SCH (22:02)
[2018-07-12] MEDS: THIAMINE HCL 100 MG TABLET (FP) PO SCH (22:02)
[2018-07-12] MEDS: QUEtiapine FUMARATE 100 MG TABLET (FP) PO SCH (22:02)
[2018-07-12] MEDS: MELATONIN 5 MG TABLETS PO PRN (22:02)
[2018-07-13] MEDS ORDERED: METHADONE HCL 40 MG DISPERSABLE TABLET ONE (04:40)
[2018-07-13] MEDS ORDERED: METHADONE HCL 10 MG TABLET ONE (04:40)
[2018-07-13] MEDS: METHADONE 40 MG, METHADONE 30 MG PO SCH (06:06)
[2018-07-13] MEDS: PRENATAL VITAMINS W/ FOLIC ACID TABLET (FP) PO SCH (10:43)
[2018-07-13] MEDS: ESCITALOPRAM OXALATE 10 MG TABLET (FP) PO SCH (10:43)
[2018-07-13] MEDS: IBUPROFEN 400 MG TABLET (FP) PO PRN (10:44)
[2018-07-13] MEDS: NICOTINE 21 MG/24 HOURS TOPICAL PATCH TD SCH (10:47)
[2018-07-13] MEDS: ZIPRASIDONE 20 MG CAPSULE PO SCH (10:48)
[2018-07-13] MEDS: BACITRACIN 0.9 GM PACKET TP SCH ×2 (10:48→21:50)
[2018-07-13] MEDS: MIRTAZAPINE 15 MG TABLET (FP) PO SCH (21:49)
[2018-07-13] MEDS: QUEtiapine FUMARATE 100 MG TABLET (FP) PO SCH (21:49)
[2018-07-13] MEDS: THIAMINE HCL 100 MG TABLET (FP) PO SCH (21:49)
[2018-07-13] MEDS: MELATONIN 5 MG TABLETS PO PRN (21:50)
[2018-07-13] MEDS: NICOTINE POLACRILEX 4 MG GUM BUC PRN (21:51)
[2018-07-14] MEDS ORDERED: METHADONE HCL 10 MG TABLET ONE (03:19)
[2018-07-14] MEDS ORDERED: METHADONE HCL 40 MG DISPERSABLE TABLET ONE (03:20)
[2018-07-14] MEDS: METHADONE 40 MG, METHADONE 30 MG PO SCH (06:36)
[2018-07-14] MEDS: IBUPROFEN 400 MG TABLET (FP) PO PRN (09:40)
[2018-07-14] MEDS: PRENATAL VITAMINS W/ FOLIC ACID TABLET (FP) PO SCH (09:40)
[2018-07-14] MEDS: BACITRACIN 0.9 GM PACKET TP SCH ×2 (09:40→21:55)
[2018-07-14] MEDS: ESCITALOPRAM OXALATE 10 MG TABLET (FP) PO SCH (09:40)
[2018-07-14] MEDS: ZIPRASIDONE 20 MG CAPSULE PO SCH (09:42)
[2018-07-14] MEDS: NICOTINE 21 MG/24 HOURS TOPICAL PATCH TD SCH (09:42)
[2018-07-14] MEDS: NICOTINE POLACRILEX 4 MG GUM BUC PRN (09:43)
--- NOTE | 2018-07-14 10:22 | PN ---
Psychiatric Progress Note Vital Signs: Vital Signs Period Temp Pulse Resp BP Sys/Ellsworth Pulse Ox Last 24 Hr 98.8 F 71 18-18 103/67 Date of Session: 07/14/18 Chief Complaint:: Discharge Note HPI: Patient addressing Alcohol, Cannabis and Phencyclidine Dependence comorbid with Nicotine Dependence and substance-Induced Mood Disorder ROS: Right ear lobe reattachment Current Medications: Active Medications Generic Name Dose Route Start Last Admin Trade Name Freq PRN Reason Stop Dose Admin Acetaminophen 650 mg 07/04/18 15:35 Tylenol - PO Q4H PRN FEVER Al Hydroxide/Mg Hydroxide 30 ml 07/04/18 15:35 Mylanta Oral Suspension - PO Q6H PRN DYSPEPSIA Bacitracin 0.9 gm 07/11/18 22:00 07/14/18 09:40 Bacitracin - TP 0.9 gm BID BESS Administration Escitalopram Oxalate 5 mg 07/05/18 10:00 07/14/18 09:40 Lexapro - PO 5 mg DAILY BESS Administration Eucalyptus/Menthol/Phenol/Sorbitol 1 each 07/04/18 15:35 Cepastat Lozenge - MM Q4H PRN SORE THROAT Guaifenesin 10 ml 07/04/18 15:35 Robitussin Dm - PO Q6H PRN COUGH Hydroxyzine Pamoate 50 mg 07/04/18 15:35 07/08/18 22:07 Vistaril - PO 50 mg Q4H PRN Administration AGITATION Ibuprofen 400 mg 07/04/18 15:35 07/14/18 09:40 Motrin - PO 400 mg Q6H PRN Administration Pain Level 4-6 Loperamide HCl 4 mg 07/04/18 15:35 Imodium - PO Q6H PRN DIARRHEA Magnesium Citrate 300 ml 07/04/18 15:35 Citroma - PO Q48H PRN CONSTIPATION Magnesium Hydroxide 30 ml 07/04/18 15:35 Milk Of Magnesia - PO DAILY PRN CONSTIPATION Melatonin 5 mg 07/04/18 22:00 07/13/18 21:50 Melatonin PO 5 mg HS PRN Administration INSOMNIA Methadone HCl 40 mg/ Methadone 70 mg 07/12/18 06:00 07/14/18 06:36 HCl 30 mg PO 70 mg DAILY@0600 BESS Administration Mirtazapine 15 mg 07/04/18 22:00 07/13/18 21:49 Remeron - PO 15 mg HS BESS Administration Nicotine 21 mg 07/05/18 10:00 07/14/18 09:42 Nicoderm Patch - TD Not Given DAILY BESS Nicotine Polacrilex 4 mg 07/04/18 15:35 07/14/18 09:43 Nicorette Gum - BUC 4 mg Q2H PRN Administration NICOTINE REPLACEMENT RX Multivit/Folic Acid/Iron 1 tab 07/05/18 10:00 07/14/18 09:40 Vitamins (Sjr) - PO 1 tab DAILY BESS Administration Pseudoephedrine/Triprolidine 1 combo 07/04/18 15:35 Actifed - PO TID PRN NASAL CONGESTION Quetiapine Fumarate 100 mg 07/09/18 22:00 07/13/18 21:49 Seroquel - PO 100 mg HS BESS Administration Thiamine HCl 100 mg 07/04/18 22:00 07/13/18 21:49 Vitamin B1 - PO 100 mg HS BESS Administration Ziprasidone 20 mg 07/05/18 10:00 07/14/18 09:42 Geodon - PO 20 mg DAILY BESS Administration Current Side Effect: No Lab tests ordered: Yes Lab tests reviewed: Yes Provider note:: Patient has completed this program today. He has partially met his treatment goals and will continue to address his issues in [facility] residential treatment at [facility]. Told engineering writer that from his participation in this program, he has learned. He responded well to Remeron 15 mg po HS, Lexapro 5 mg po daily, Geodon 20 mg po daily and Seroquel 100 mg po HS. Scripts for 30 days supply of medications are electronically transmitted to [facility] at [address] [place] [address]. He is stable for discharge today Total face to face time:: 35 Mental Status Exam - Mental Status Exam Alert and Oriented to: Time, Place, Person Cognitive Function: Fair Patient Appearance: Well Groomed Mood: Hopeful, Euthymic Affect: Appropriate Patient Behavior: Cooperative Speech Pattern: Clear Voice Loudness: Normal Thought Process: Intact, Goal Oriented Thought Disorder: Not Present Hallucinations: Denies Suicidal Ideation: Denies Homicidal Ideation: Denies Insight/Judgement: Fair Sleep: Fair Appetite: Good Muscle strength/Tone: Normal Gait/Station: Normal Psychiatric Treatment Plan - Problem List (1) Alcohol dependence Current Visit: Yes (2) Cannabis dependence Current Visit: Yes (3) Phencyclidine dependence Current Visit: Yes (4) Opioid dependence on agonist therapy Current Visit: Yes (5) Nicotine dependence Current Visit: Yes (6) Substance induced mood disorder Current Visit: Yes (7) Injury of right ear Current Visit: Yes Qualifiers: Encounter type: subsequent encounter Qualified Code(s): S09.91XD - Unspecified injury of ear, subsequent encounter Initial treatment plan: Patient is discharged today and referred to [facility] for [facility]
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
[2018-07-14] MEDS: IBUPROFEN 600 MG TABLET (FP) PO PRN (14:25)
[2018-07-14] MEDS: MIRTAZAPINE 15 MG TABLET (FP) PO SCH (21:54)
[2018-07-14] MEDS: QUEtiapine FUMARATE 100 MG TABLET (FP) PO SCH (21:54)
[2018-07-14] MEDS: THIAMINE HCL 100 MG TABLET (FP) PO SCH (21:54)
[2018-07-14] MEDS: MELATONIN 5 MG TABLETS PO PRN (21:55)
[2018-07-15] MEDS ORDERED: METHADONE HCL 40 MG DISPERSABLE TABLET ONE (05:48)
[2018-07-15] MEDS ORDERED: METHADONE HCL 10 MG TABLET ONE (05:48)
[2018-07-15] MEDS: METHADONE 40 MG, METHADONE 30 MG PO SCH (06:03)
[2018-07-15] MEDS: BACITRACIN 0.9 GM PACKET TP SCH ×2 (10:29→21:48)
[2018-07-15] MEDS: PRENATAL VITAMINS W/ FOLIC ACID TABLET (FP) PO SCH (10:29)
[2018-07-15] MEDS: NICOTINE 21 MG/24 HOURS TOPICAL PATCH TD SCH (10:30)
[2018-07-15] MEDS: ESCITALOPRAM OXALATE 10 MG TABLET (FP) PO SCH (10:30)
[2018-07-15] MEDS: ZIPRASIDONE 20 MG CAPSULE PO SCH (10:31)
[2018-07-15] MEDS: NICOTINE POLACRILEX 4 MG GUM BUC PRN (10:32)
[2018-07-15] MEDS: QUEtiapine FUMARATE 100 MG TABLET (FP) PO SCH (21:48)
[2018-07-15] MEDS: THIAMINE HCL 100 MG TABLET (FP) PO SCH (21:48)
[2018-07-15] MEDS: MELATONIN 5 MG TABLETS PO PRN (21:48)
[2018-07-15] MEDS: MIRTAZAPINE 15 MG TABLET (FP) PO SCH (21:48)
[2018-07-16] MEDS ORDERED: METHADONE HCL 10 MG TABLET ONE (04:40)
[2018-07-16] MEDS ORDERED: METHADONE HCL 40 MG DISPERSABLE TABLET ONE (04:40)
[2018-07-16] MEDS: METHADONE 40 MG, METHADONE 30 MG PO SCH (06:04)
[2018-07-16] MEDS: ESCITALOPRAM OXALATE 10 MG TABLET (FP) PO SCH (10:37)
[2018-07-16] MEDS: BACITRACIN 0.9 GM PACKET TP SCH ×2 (10:37→21:42)
[2018-07-16] MEDS: PRENATAL VITAMINS W/ FOLIC ACID TABLET (FP) PO SCH (10:38)
[2018-07-16] MEDS: ZIPRASIDONE 20 MG CAPSULE PO SCH (10:38)
[2018-07-16] MEDS: NICOTINE 21 MG/24 HOURS TOPICAL PATCH TD SCH (10:38)
[2018-07-16] MEDS: NICOTINE POLACRILEX 4 MG GUM BUC PRN (10:38)
[2018-07-16] MEDS: IBUPROFEN 600 MG TABLET (FP) PO PRN (14:19)
[2018-07-16] MEDS: QUEtiapine FUMARATE 100 MG TABLET (FP) PO SCH (21:42)
[2018-07-16] MEDS: THIAMINE HCL 100 MG TABLET (FP) PO SCH (21:43)
[2018-07-16] MEDS: MIRTAZAPINE 15 MG TABLET (FP) PO SCH (21:43)
[2018-07-16] MEDS: MELATONIN 5 MG TABLETS PO PRN (21:43)
[2018-07-17] MEDS ORDERED: METHADONE HCL 10 MG TABLET ONE (03:27)
[2018-07-17] MEDS ORDERED: METHADONE HCL 40 MG DISPERSABLE TABLET ONE (03:28)
[2018-07-17] MEDS: METHADONE 40 MG, METHADONE 30 MG PO SCH (06:24)
[2018-07-17] MEDS: IBUPROFEN 600 MG TABLET (FP) PO PRN (07:24)
[2018-07-17] MEDS: ZIPRASIDONE 20 MG CAPSULE PO SCH (10:45)
[2018-07-17] MEDS: NICOTINE POLACRILEX 4 MG GUM BUC PRN (10:46)
[2018-07-17] MEDS: BACITRACIN 0.9 GM PACKET TP SCH ×2 (10:46→21:28)
[2018-07-17] MEDS: PRENATAL VITAMINS W/ FOLIC ACID TABLET (FP) PO SCH (10:46)
[2018-07-17] MEDS: NICOTINE 21 MG/24 HOURS TOPICAL PATCH TD SCH (10:46)
[2018-07-17] MEDS: ESCITALOPRAM OXALATE 10 MG TABLET (FP) PO SCH (10:46)
[2018-07-17] MEDS: THIAMINE HCL 100 MG TABLET (FP) PO SCH (21:28)
[2018-07-17] MEDS: MIRTAZAPINE 15 MG TABLET (FP) PO SCH (21:28)
[2018-07-17] MEDS: QUEtiapine FUMARATE 100 MG TABLET (FP) PO SCH (21:28)
[2018-07-17] MEDS: MELATONIN 5 MG TABLETS PO PRN (21:28)
[2018-07-18] MEDS ORDERED: METHADONE HCL 40 MG DISPERSABLE TABLET ONE (04:05)
[2018-07-18] MEDS ORDERED: METHADONE HCL 10 MG TABLET ONE (04:05)
[2018-07-18] MEDS ORDERED: METHADONE 40 MG, METHADONE 30 MG PO SCH (06:00)
[2018-07-18] MEDS ORDERED: METHADONE HCL 10 MG TABLET PO SCH (06:00)
--- NOTE | 2018-07-18 06:48 | PN ---
Psychiatric Progress Note Vital Signs: Vital Signs Period Temp Pulse Resp BP Sys/Ellsworth Pulse Ox Last 24 Hr 98.7 F 70 16-18 125/56 Date of Session: 07/18/18 Chief Complaint:: Discharge Note HPI: Patient addressing Alcohol, Cannabis and Phencyclidine Dependence comorbid with Opioid Dependence on Agonist Therapy, Nicotine Dependence, Substance- Induced Mood Disorder and Substance-Induced Sleep Disorder ROS: Right earlobe reattachment Current Medications: Active Medications Generic Name Dose Route Start Last Admin Trade Name Freq PRN Reason Stop Dose Admin Acetaminophen 650 mg 07/04/18 15:35 Tylenol - PO Q4H PRN FEVER Al Hydroxide/Mg Hydroxide 30 ml 07/04/18 15:35 Mylanta Oral Suspension - PO Q6H PRN DYSPEPSIA Bacitracin 0.9 gm 07/11/18 22:00 07/17/18 21:28 Bacitracin - TP 0.9 gm BID BESS Administration Escitalopram Oxalate 5 mg 07/05/18 10:00 07/17/18 10:46 Lexapro - PO 5 mg DAILY BESS Administration Eucalyptus/Menthol/Phenol/Sorbitol 1 each 07/04/18 15:35 Cepastat Lozenge - MM Q4H PRN SORE THROAT Guaifenesin 10 ml 07/04/18 15:35 Robitussin Dm - PO Q6H PRN COUGH Hydroxyzine Pamoate 50 mg 07/04/18 15:35 07/08/18 22:07 Vistaril - PO 50 mg Q4H PRN Administration AGITATION Ibuprofen 600 mg 07/14/18 12:02 07/17/18 07:24 Motrin - PO 600 mg Q6H PRN Administration Pain Level 4-6 Loperamide HCl 4 mg 07/04/18 15:35 Imodium - PO Q6H PRN DIARRHEA Magnesium Citrate 300 ml 07/04/18 15:35 Citroma - PO Q48H PRN CONSTIPATION Magnesium Hydroxide 30 ml 07/04/18 15:35 Milk Of Magnesia - PO DAILY PRN CONSTIPATION Melatonin 5 mg 07/04/18 22:00 07/17/18 21:28 Melatonin PO 5 mg HS PRN Administration INSOMNIA Methadone HCl 40 mg/ Methadone 70 mg 07/18/18 06:00 07/18/18 05:58 HCl 30 mg PO 70 mg DAILY@0600 BESS Administration Mirtazapine 15 mg 07/04/18 22:00 07/17/18 21:28 Remeron - PO 15 mg HS BESS Administration Nicotine 21 mg 07/05/18 10:00 07/17/18 10:46 Nicoderm Patch - TD Not Given DAILY BESS Nicotine Polacrilex 4 mg 07/04/18 15:35 07/17/18 10:46 Nicorette Gum - BUC 4 mg Q2H PRN Administration NICOTINE REPLACEMENT RX Multivit/Folic Acid/Iron 1 tab 07/05/18 10:00 07/17/18 10:46 Vitamins (Sjr) - PO 1 tab DAILY BESS Administration Pseudoephedrine/Triprolidine 1 combo 07/04/18 15:35 Actifed - PO TID PRN NASAL CONGESTION Quetiapine Fumarate 100 mg 07/09/18 22:00 07/17/18 21:28 Seroquel - PO 100 mg HS BESS Administration Thiamine HCl 100 mg 07/04/18 22:00 07/17/18 21:28 Vitamin B1 - PO 100 mg HS BESS Administration Ziprasidone 20 mg 07/05/18 10:00 07/17/18 10:45 Geodon - PO 20 mg DAILY BESS Administration Current Side Effect: No Lab tests ordered: Yes Lab tests reviewed: Yes Provider note:: Patient has completed this program today. He has met his treatment goals and will continue to address his issues in [facility] residential treatment at [facility] Told engineering technical writer that from his participation in this program, he has learned the tools that will help him with his addiction. He responded well to Lexapro 5 mg po daily, Geodon 20 mg po daily and Seroquel 100 mg po HS. Scripts for 30 days supply of these medications are electronically transmitted to [facility] at [address] [place] [address]. He is stable for discharge today Total face to face time:: 35 Psychiatric Treatment Plan - Problem List (1) Alcohol dependence Current Visit: Yes (2) Cannabis dependence Current Visit: Yes (3) Phencyclidine dependence Current Visit: Yes (4) Opioid dependence on agonist therapy Current Visit: Yes (5) Nicotine dependence Current Visit: Yes (6) Substance induced mood disorder Current Visit: Yes (7) Injury of right ear Current Visit: Yes Qualifiers: Encounter type: subsequent encounter Qualified Code(s): S09.91XD - Unspecified injury of ear, subsequent encounter Initial treatment plan: Patient is discharged today and referred to [facility] for [facility]
[2018-07-18 07:25] VITALS: BP 116/70; PULSE 74; TEMP 98.6
--- NOTE | 2018-07-18 10:34 | PN ---
[facility] Progress Note Note: PT IS DISCHARGING TODAY AND WILL FOLLOW UP WITH HIS POST OP APPOINTMENT AT [facility] RE:STITCH REMOVAL, EVALUATION AND FURTHER PLAN FOR HIS RIGHT EAR ABOUT POSSIBLE PLASTIC SURGICAL REPAIR OF EAR LOBE. PT HAS BEEN REFERRED BY COUNSELOR TO [facility] [place] [facility](SEE COUNSELOR'S NOTES). PT IS ALERT O X 3 NAD AND READY TO FOLLOW UP TODAY WITH HIS TREATMENT PLAN. Vital Signs 07/18/18 07:24 Temperature 98.6 F Pulse Rate 74 Respiratory 18 Rate Blood Pressure 116/70 PLAN:FOLLOW UP AT [facility] [place] [address] AT 12 PM TODAY. FOLLOW UP FOR REFERRAL AFTERCARE AT [id number] COUNSELOR'S NOTES).
[2018-07-18] MEDS: PRENATAL VITAMINS W/ FOLIC ACID TABLET (FP) PO SCH (11:01)
[2018-07-18] MEDS: ESCITALOPRAM OXALATE 10 MG TABLET (FP) PO SCH (11:01)
[2018-07-18] MEDS: ZIPRASIDONE 20 MG CAPSULE PO SCH (11:02)
[2018-07-18] MEDS: BACITRACIN 0.9 GM PACKET TP SCH (11:02)
[2018-07-18] MEDS: NICOTINE 21 MG/24 HOURS TOPICAL PATCH TD SCH (11:03)
== END 2018-07-18 11:20 | disposition other institution (70) | DRG 772 ==
LOC: YASAS 13:22 → Y5N 13:23
PROVIDERS: ADMIT Psychiatry & Neurology Psychiatry; ATTEND Psychiatry & Neurology Psychiatry
PROC: HZ42ZZZ Group Counseling for Substance Abuse Treatment, Cognitive-Behavioral (ICD-10-PCS; principal; 2018-07-04)
DX: F10.20 Alcohol dependence, uncomplicated (principal); F12.20 Cannabis dependence, uncomplicated; F16.20 Hallucinogen dependence, uncomplicated; F11.20 Opioid dependence, uncomplicated; F17.210 Nicotine dependence, cigarettes, uncomplicated; F19.24 Other psychoactive substance dependence with psychoactive substance-induced mood disorder; F19.282 Other psychoactive substance dependence with psychoactive substance-induced sleep disorder; S09.8XXD Other specified injuries of head, subsequent encounter; Y04.1XXD Assault by human bite, subsequent encounter